=== PATIENT | female | born 1985 | race Caucasian/White ===

== ENCOUNTER 2023-06-27 06:06 | Inpatient (IN) ==
[2023-06-27] MEDS ORDERED: LIDOCAINE 1% LOCAL 20 ML VIAL INFIL PRN (07:29)
[2023-06-27] MEDS ORDERED: OXYTOCIN 30 UNITS/500 ML BAG IV PRN ×3 (07:29→22:36)
--- NOTE | 2023-06-27 07:39 | History & Physical Report ---
Date of Service June 27, 2023 Assessment & Plan (1) SROM (spontaneous rupture of membranes): Plan: 37 yo at 38 5/7 wga presents w/ srom VSS Fetus cat 1 SROM - ROM confirmed. Offered to walk for a few hours vs starting pit, pt would like to walk. Aware if does not change, may rec pit GBS neg epidural prn History of Present Illness Chief Complaint: LOF Primary Care Provider: Jaspreet Wan, DO 37 yo at 38 5/7 wga presents w/ c/o LOF. +FM; denies VB. Has some period like cramps, felt a little more while walking around at home. 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[employer] Hx: G1 2019 G2 current denies hx stis Allergies Allergy/AdvReac Type Severity Reaction Status Date / Time No Known Allergies Allergy Mild Verified 06/27/23 07:04 Home Medications Medication Instructions Recorded Confirmed Type prenat.vits,mary,vhc-qgsb-[id number] 1 tab PO DAILY 11/22/22 06/27/23 History breast pump #1 ea 05/31/23 06/26/23 Rx ferrous sulfate 325 mg (65 mg 325 mg PO DAILY 06/27/23 06/27/23 History iron) tablet (iron) Patient History Medical History (Updated 06/27/23 @ 07:37 by Venecia Amador MD) Endometriosis History of chicken pox Perforated chronic stomach ulcer approx 16 years ago Surgical History (Updated 06/27/23 @ 07:03 by Dyan Mendoza RN) H/O laparoscopy Secondary to endometriosis. H/O wisdom tooth extraction Status post surgery perforated stomach ulcer Family History Mother Diabetes COPD (chronic obstructive pulmonary disease) Father Diabetes Sister Gestational diabetes Denies family history of Ovarian cancer Prostate cancer Myocardial infarction Breast cancer Colorectal cancer Social History (Updated 06/27/23 @ 07:04 by Dyan Mendoza, RN) Smoking Status: Never smoker Second Hand Exposure: No; Do You Dip or Chew Tobacco: No; Hx Alcohol Use: No Hx Substance Use: No Preferred Language: Hungarian marital status: marital status details: Chinedu Vang (37) [phone] Current Living Situation: Spouse and Family Current Living Situation Comment: lives with spouse, son, dog current occupational status: employed current occupation: [employer] How many Children do You have: 1 Physical Exam Genitourinary: Manual OB Exam: + cervical dilation (1.5), + cervical effacement 50%, + station -2 and + amniotic fluid (+nitrazine, pooling, ferning) OB Exam Monitor Tracing: + external FHT monitor used, + external uterine monitor used (irreg) and + category I (140/mod/+accel/-decel) Results & Data Vital Signs (Past 12 Hours) Vital Signs Temp Pulse BP 06/27/23 06:59 75 120/78 06/27/23 06:40 97.9 F 75 119/75 Laboratory Results OB Labs: Blood Type O Positive 12/13/22 Antibody Screen NEGATIVE 12/13/22 Hemoglobin 12.6 g/dl (12.0-16.0) 04/19/23 Hematocrit 36.1 % (37.0-47.0) L 04/19/23 Mean Corpuscular Volume 91.3 fL (80.0-100.0) 12/13/22 Platelet Count 211 K/uL (130-400) 12/13/22 Rubella IgG Antibody Immune (Immune) 12/13/22 Rapid Plasma Reagin Nonreactive (Nonreactive) 12/13/22 Hepatitis B Surface Antigen. NON-REACTIVE (NON-REACTIVE) 12/13/22 Hepatitis C Antibody (EIA) NON-REACTIVE (NON-REACTIVE) 12/13/22 HIV (1&2) Ag and Ab Confirmation NON-REACTIVE (NON-REACTIVE) 12/13/22 Glucose 1 Hour 50 gm Load 115 mg/dl (70-130) 04/19/23 Maternal Serum Alpha Fetoprotein 26.8 ng/mL 01/22/23 OB Optional Labs: Chlamydia trachomatis RNA Not Detected (NotDetected) 11/27/22 Neisseria gonorrhoeae RNA Not Detected (NotDetected) 11/27/22 Alpha Fetoprotein Triple Screen SEE NOTE 01/22/23 Labs Reviewed: cfdna-low risk--mln Declines carrier screen--mln neg afp - sln GBS neg Coding Level of Care Code None Diagnoses SROM (spontaneous rupture of membranes)
[2023-06-27 08:07] LABS: Hematocrit (blood only) 38.8 % (37.0-47.0); Hemoglobin 13.6 g/dl (12.0-16.0); Mean Corpuscular Hemoglobin 33.3 pg (25.0-34.0); Mean Corpuscular Hgb Conc 35.1 g/dL (32.0-36.0); Mean Corpuscular Volume 94.9 fL (80.0-100.0); Mean Platelet Volume 11.2 fL (9.4-12.4); Platelet Count 162 K/uL (130-400); RDW Coefficient of Variation 12.6 % (11.5-14.5); RDW Standard Deviation 43.9 fL (36.4-46.3); Red Blood Count 4.09 M/uL (4.20-5.40); White Blood Count 9.91 K/ul (4.8-10.8)
[2023-06-27] MEDS: LACTATED RINGER'S 1,000 ML IV PRN ×2 (16:12→19:13)
[2023-06-27] MEDS ORDERED: ePHEDrine sulfate 50 MG/ML AMP ONE (18:25)
[2023-06-27] MEDS ORDERED: fentaNYL citrate PF 100 MCG/2 ML VIAL ONE (18:25)
[2023-06-27] MEDS ORDERED: fentaNYL 2MCG/ML ROPIVACAINE 1.25MG/ML 100 ML BAG EPI ONE (18:26)
[2023-06-27] MEDS ORDERED: BUPIVACAINE 0.25% PF 30 ML VIAL ONE (18:26)
[2023-06-27] MEDS ORDERED: SODIUM CHLORIDE 0.9% PF INJ 10 ML VIAL ONE (18:26)
[2023-06-27] MEDS ORDERED: LIDOCAINE 2%/EPINEPHRINE 1:200,000 20 ML PF ONE ×2 (18:26→21:47)
--- NOTE | 2023-06-27 18:36 | Anesthesiology Consultation ---
Date of Service June 27, 2023 Assessment & Plan (1) Encounter for pre-operative examination: Chart Review Chart Review: Acceptable Risk for Labor Epidural History Height/Weight Height: 5 ft 7 in Weight: 78.925 kg Allergies Allergy/AdvReac Type Severity Reaction Status Date / Time No Known Allergies Allergy Mild Verified 06/27/23 07:04 Medications Home Medications Medication Instructions Recorded Confirmed Last Taken prenat.vits,mary,hdt-nzqi-nlegv 1 tab PO DAILY 11/22/22 06/27/23 06/26/23 breast pump #1 ea 05/31/23 06/26/23 Unknown ferrous sulfate 325 mg (65 mg 325 mg PO DAILY 06/27/23 06/27/23 06/26/23 iron) tablet (iron) Active Medications Generic Name Dose Route Start Last Admin Trade Name Freq PRN Reason Stop Dose Admin Lactated Ringer's 1,000 mls @ 125 mls/hr 06/27/23 07:29 06/27/23 18:23 Lr IV 06/29/23 07:28 999 mls/hr .Q8H PRN Infusion L&D Protocol Protocol Oxytocin 30 units in 500 mls @ 6 mls/hr 06/27/23 15:32 06/27/23 17:45 Pitocin IV 06/29/23 15:31 0.36 units/hr .Q24H PRN 6 mls/hr Labor Induction/Augmentation Titration Protocol 0.36 UNITS/HR Past Medical History Medical History Endometriosis History of chicken pox Perforated chronic stomach ulcer approx 16 years ago Past Family History Family History Mother Diabetes COPD (chronic obstructive pulmonary disease) Father Diabetes Sister Gestational diabetes Denies family history of Ovarian cancer Prostate cancer Myocardial infarction Breast cancer Colorectal cancer Past Surgical History Surgical History H/O laparoscopy Secondary to endometriosis. H/O wisdom tooth extraction Status post surgery perforated stomach ulcer Social History Smoking Status: Never smoker Do You Dip or Chew Tobacco: No Hx Alcohol Use: No Hx Substance Use: No substance use type: does not use Physical Exam Vital Signs Last Vital Signs Temp 36.6 C 06/27/23 17:00 Pulse 87 06/27/23 18:33 Resp 18 06/27/23 17:00 BP 146/91 H 06/27/23 18:22 Pulse Ox 100 06/27/23 18:33 Testing Laboratory Results 06/27/23 07:48
[2023-06-27] MEDS ORDERED: fentaNYL citrate PF 100 MCG/2 ML VIAL EPI STA (19:11)
[2023-06-27] MEDS ORDERED: ROPIVACAINE 0.5% PF 5 MG/ML 20 ML VIAL EPI PRN (19:11)
[2023-06-27] MEDS ORDERED: NALOXONE HCL 1 MG in SODIUM CHLORIDE 0.9% 1,000 ML IV PRN (19:11)
[2023-06-27] MEDS ORDERED: ONDANSETRON INJ 2 MG/ML 2 ML VIAL IV PRN (19:11)
[2023-06-27] MEDS ORDERED: LIDOCAINE 2%/EPINEPHRINE 1:200,000 20 ML PF EPI STA (19:11)
[2023-06-27] MEDS ORDERED: NALOXONE HCL 0.4 MG/1 ML VIAL/CARP IV PRN (19:11)
[2023-06-27] MEDS ORDERED: ePHEDrine sulfate 50 MG/ML AMP IV PRN (19:11)
[2023-06-27] MEDS ORDERED: BUPIVACAINE 0.25% PF 30 ML VIAL EPI STA (19:11)
[2023-06-27] MEDS ORDERED: SODIUM CHLORIDE 0.9% PF INJ 10 ML VIAL EPI PRN (19:11)
[2023-06-27] MEDS ORDERED: LIDOCAINE 2% MPF LOCAL 5 ML VIAL EPI PRN (19:11)
[2023-06-27] MEDS ORDERED: fentaNYL 2MCG/ML ROPIVACAINE 1.25MG/ML 100 ML BAG EPI PRN (19:11)
[2023-06-27] MEDS ORDERED: SODIUM CHLORIDE 0.9% PF INJ 10 ML VIAL EPI STA (19:11)
[2023-06-27] MEDS ORDERED: fentaNYL citrate PF 100 MCG/2 ML VIAL EPI PRN (19:11)
[2023-06-27] MEDS ORDERED: BUPIVACAINE 0.25% PF 30 ML VIAL EPI PRN (19:11)
[2023-06-27] MEDS ORDERED: NURSING L&D Epidural Breakthrough Pain Update ONE (21:19)
[2023-06-27] MEDS ORDERED: ROPIVACAINE 0.5% 5 MG/ML 30 ML VIAL ONE (21:47)
--- NOTE | 2023-06-27 21:52 | Anesthesia Procedure Note ---
Date of Service June 27, 2023 Anesthesia Epidural Re-Dose Vital Signs Temp Pulse Resp BP Pulse Ox 36.8 C 112 H 18 133/81 98 06/27/23 21:00 06/27/23 21:48 06/27/23 19:06 06/27/23 21:39 06/27/23 21:48 Notes Pain Intensity: 7 Dilatation (cm): 8.0 Effacement (%): 100 Called by nursing to evaluate epidural as the patient is having increased pain. The epidural was re-dosed with the following medications (all medications via epidural route) after negative aspiration of the epidural catheter for CSF/HEME 1.2% lidocaine and 0.2% ropivacaine 7 ml After Epidural Re-Dose Mental Status: alert / awake / arousable Pain: improving with treatment and see Notes below Airway Patency, RR, SpO2: stable & adequate BP & HR: stable & adequate Additional Notes: with cx still pretty painful but seems to get more of a break between - checked her and she is complete and will start pushin now.
[2023-06-27] MEDS ORDERED: bisacodyL 10 MG SUPP PR PRN (22:36)
[2023-06-27] MEDS ORDERED: DIPHTHERIA/TETANUS/PERTUSSIS Vaccine (Tdap, Age 7+yrs) 0.5mL SYR/VL IM ONE (22:36)
[2023-06-27] MEDS ORDERED: HYDROCORTISONE ACETATE 25 MG SUPP PR PRN (22:36)
[2023-06-27] MEDS ORDERED: BENZOCAINE 20% SPRY 85 APPLN/85 GM CAN EXT PRN (22:36)
[2023-06-27] MEDS ORDERED: ACETAMINOPHEN 325 MG TAB PO PRN (22:36)
--- NOTE | 2023-06-27 22:41 | Delivery Summary ---
Vaginal Delivery Summary Date of Service June 27, 2023 Vaginal Delivery Summary and 1st Degree LAC Patient progressed to 10 cm dilated percent effaced +2 station pushed over intact perineum with epidural anesthesia and delivered a viable male with weight and Apgars pending. Patient pushed with 25 minutes to achieve delivery. Had the delivered in KOBI position rest due to right transverse. A loose nuchal cord was noted which was easily reduced. Body and shoulders quickly followed. There is noted to be a body cord after delivery. was noted to be vigorous soon after delivery and a 1 minute delayed cord clamping was initiated. Cord was then double clamped and cut. Attention was turned to delivery the placenta which delivered intact with three-vessel cord with gentle cord. Inspection of inspection of the perineum vagina and cervix there is noted to be a first-degree right lateral vaginal laceration which was repaired with 3-0 Vicryl in a continuous stitch. Needle sponge and instrument counts are correct at the completion of the case. Both mother and stable in the immediate postdelivery. [facility] Vaginal Delivery Charge Delivery Type Details: and 1st Degree LAC
[2023-06-28] MEDS: IBUPROFEN 600 MG TAB PO PRN ×3 (01:26→15:08)
--- NOTE | 2023-06-28 07:02 | Anesthesia Procedure Note ---
Date of Service June 28, 2023 Anesthesia Post Epidural Note Vital Signs Vital Signs: Temp Pulse Resp BP Pulse Ox O2 Del Method 97.9 F 76 18 124/70 97 Room Air 06/28/23 04:20 06/28/23 04:20 06/28/23 04:20 06/28/23 04:20 06/28/23 01:20 06/28/23 01:20 Pain Intensity Abdomen: Pain Intensity: 2 Notes Mental Status: alert / awake / arousable and participated in evaluation Nausea / Vomiting: adequately controlled Pain: adequately controlled Airway Patency, RR, SpO2: stable & adequate BP & HR: stable & adequate Hydration State: stable & adequate Neuraxial Anesthesia: was administered and sensory block is resolving Anesthetic Complications: no major complications apparent and Pt Satisfied with anesthetic care Epidural: Removed without complications and With tip intact
--- NOTE | 2023-06-28 08:10 | Medical Student Progress Note ---
Date of Service June 28, 2023 Assessment & Plan (1) Normal vaginal delivery: Plan Mrs. Jenkins is a 37 yo , PPD 1 status post vaginal delivery of a boy. She feels well. Vaginal Delivery, uncomplicated Eating well, passing gas, ambulating well. Pain is 1/10 predominantly with breast feeding. Vital signs reviewed and WNL. Hgb reveiwed: 13.6 -Routine care -- ambulation, normal diet. -Continue to encourage ambulation, monitor and control pain with Motrin PRN -Resume regular diet -Monitor lochia -Breast feeding encouraged. -After discharge will have 6 week follow up with [facility]. Admission and Anticipated Discharge Date Admission Date: June 27, 2023 Subjective PPD 1 uncomplicated vaginal delivery. Ambulating normally, passing gas, breast feeding. . Pain: 1/10, predominately while breast feeding. Lochia: blood with just a few clots. Tolerating normal diet. ROS: No ZHANG, chest pain, SOB, n/v/d, or lower leg edema. Physical Exam Constitutional: Alert and oriented x3 in hospital bed Eyes: Pupils were equal, normal shape and size. Anicteric sclerae. ENMT: No hearing impairment. Neck: Respiratory: CTA, no increased work of breathing, no cough Gastrointestinal (Abdomen): Nondistended, nontender, uterus firm Musculoskeletal: Moves all extremities independently. Skin: Warm dry, no apparent rashes. Psychiatric: Appropriate mood and affect. Results & Data Vital Signs (Past 12 Hours) Vital Signs Temp Pulse Pulse Resp BP BP Pulse Ox 06/28/23 04:20 36.6 C 76 18 124/70 06/28/23 01:20 36.6 C 78 18 131/78 97 06/28/23 00:29 90 18 134/75 06/28/23 00:14 84 116/64 06/27/23 23:59 96 H 18 122/69 06/27/23 23:44 93 H 123/75 06/27/23 23:29 86 18 120/61 06/27/23 23:14 83 18 126/66 06/27/23 22:59 96 H 18 119/63 06/27/23 22:44 110 H 18 129/82 06/27/23 22:33 91 H 97 06/27/23 22:29 99 H 18 121/69 06/27/23 22:28 98 H 96 06/27/23 22:23 89 73 L 06/27/23 22:18 91 H 96 06/27/23 22:14 87 107/58 L 06/27/23 22:13 111 H 90 06/27/23 22:12 104 H 87 L 06/27/23 22:08 99 H 93 06/27/23 22:03 103 H 97 06/27/23 22:02 111 H 84 L 06/27/23 21:58 106 H 96 06/27/23 21:56 107 H 142/65 H 06/27/23 21:54 112 H 135/69 06/27/23 21:53 100 H 98 06/27/23 21:52 113 H 143/67 H 06/27/23 21:51 108 H 206/88 H 06/27/23 21:48 112 H 98 06/27/23 21:43 101 H 98 06/27/23 21:38 112 H 98 06/27/23 21:39 94 H 133/81 06/27/23 21:33 109 H 97 06/27/23 21:28 113 H 97 06/27/23 21:23 100 H 98 06/27/23 21:18 100 H 98 06/27/23 21:13 99 H 100 06/27/23 21:08 95 H 100 06/27/23 21:09 88 105/63 06/27/23 21:00 36.8 C 06/27/23 21:03 95 H 100 06/27/23 20:58 86 100 06/27/23 20:53 91 H 99 06/27/23 20:48 88 99 06/27/23 20:43 83 98 06/27/23 20:38 77 99 06/27/23 20:39 75 105/63 06/27/23 20:33 79 99 06/27/23 20:28 90 100 06/27/23 20:23 76 100 06/27/23 20:24 73 109/69 06/27/23 20:18 80 100 06/27/23 20:13 76 100 06/27/23 20:08 88 99 06/27/23 20:09 83 115/73 06/27/23 20:03 89 100 O2 Del Method 06/28/23 04:20 06/28/23 01:20 Room Air 06/28/23 00:29 06/28/23 00:14 06/27/23 23:59 06/27/23 23:44 06/27/23 23:29 06/27/23 23:14 06/27/23 22:59 06/27/23 22:44 06/27/23 22:33 06/27/23 22:29 06/27/23 22:28 06/27/23 22:23 06/27/23 22:18 06/27/23 22:14 06/27/23 22:13 06/27/23 22:12 06/27/23 22:08 06/27/23 22:03 06/27/23 22:02 06/27/23 21:58 06/27/23 21:56 06/27/23 21:54 06/27/23 21:53 06/27/23 21:52 06/27/23 21:51 06/27/23 21:48 06/27/23 21:43 06/27/23 21:38 06/27/23 21:39 06/27/23 21:33 06/27/23 21:28 06/27/23 21:23 06/27/23 21:18 06/27/23 21:13 06/27/23 21:08 06/27/23 21:09 06/27/23 21:00 06/27/23 21:03 06/27/23 20:58 06/27/23 20:53 06/27/23 20:48 06/27/23 20:43 06/27/23 20:38 06/27/23 20:39 06/27/23 20:33 06/27/23 20:28 06/27/23 20:23 06/27/23 20:24 06/27/23 20:18 06/27/23 20:13 06/27/23 20:08 06/27/23 20:09 06/27/23 20:03 Supervising Attestation Patient seen with med student and resident and agree with the above findings and plan. Patient doing well. Vitals within normal limits. Bleeding minimal. Routine care. Plan for discharge tomorrow
[2023-06-28] MEDS: DOCUSATE SODIUM 100 MG CAP PO SCH ×2 (08:27→20:50)
[2023-06-28] MEDS: PRENATAL VITAMIN 1 TAB PO SCH (08:27)
--- NOTE | 2023-06-28 14:24 | Obstetrical Progress Note ---
Date of Service <Dillon Lu MD - Last Filed: 06/29/23 06:53> June 28, 2023 Assessment & Plan <Dillon Lu MD - Last Filed: 06/29/23 06:53> (1) Vaginal delivery: Plan 37 yo , status post of a boy, on 06/27/23, with a 1st degree LAC - Pt doing well clinically. Feels well today. Eating well, voiding well, ambulating well. Pain well controlled with PRN pain meds. - Routine care -- OOB, ambulation, diet progression as tolerated Vital Signs reviewed and WNL (Tmax at 36.8) after delivery, except as noted: P of 96 a few hrs after delivery. Hemoglobin Reviewed. 13.6 (date) ___ (today). Blood Type: O+, GBS-, Rubella Immune. Encourage ambulation, monitor and control pain with Motrin PRN, resume regular diet, monitor lochia. Breast feeding encouraged. After discharge will have 6 week follow-up with Dr. Angulo. Pt counselled on discharge instructions. <Svitlana Marti MD - Last Filed: 06/29/23 07:03> (1) Vaginal delivery: Subjective <Dillon Lu MD - Last Filed: 06/29/23 06:53> Ambulation: ambulating normally Voiding: no voiding problems Passing Gas:: Yes Diet Tolerance:: regular diet Lochia:: Small Feeding Type:: breast feeding (w/ suppl formula) Current Pain Level(1-10): 1 (cramping when ) Constitutional: no fever, no chills or no weakness Respiratory: no cough or no dyspnea Cardiovascular: no chest pain or no palpitations Breast: + breast pain (nipple soreness w/ latching) Gastrointestinal: no nausea, no vomiting, no constipation (has not had BM yet) or no diarrhea/loose stools Musculoskeletal: no myalgia (calf pain or tenderness) Physical Exam <Dillon Lu MD - Last Filed: 06/29/23 06:53> Constitutional WD/WN, vitals as above Respiratory normal respiratory effort, lungs clear to auscultation Cardiovascular RRR, no murmur, no edema Gastrointestinal (Abdomen) normal bowel sounds, soft, nontender, no hepatosplenomegaly Musculoskeletal Extremities: extremities normal to inspection (no calf pain or tenderness) Results & Data <Dillon Lu MD - Last Filed: 06/29/23 06:53> Vital Signs (Past 12 Hours) Vital Signs Temp Pulse Resp BP O2 Del Method 06/28/23 13:05 36.7 C 74 16 115/74 Room Air 06/28/23 07:45 36.3 C L 70 16 121/75 Room Air 06/28/23 04:20 36.6 C 76 18 124/70 <Svitlana Marti MD - Last Filed: 06/29/23 07:03> Co-Signing Physician Notes Resident Physician Supervision Note: I interviewed and examined the patient. Discussed with Dr. Lu and agree with findings and plan as documented in the note. Any exceptions or clarifications are listed here: [ ] Documented By: Svitlana Marti MD, FACOG
[2023-06-28] MEDS ORDERED: bisacodyL 5 MG TABEC PO SCH (20:00)
[2023-06-29] MEDS: PRENATAL VITAMIN 1 TAB PO SCH (10:22)
[2023-06-29] MEDS: IBUPROFEN 600 MG TAB PO PRN (10:22)
[2023-06-29] MEDS: DOCUSATE SODIUM 100 MG CAP PO SCH (10:22)
== END 2023-06-29 13:50 | disposition home or self-care (01) | DRG 807 ==
LOC: OPB 06:06 → 4S1 06:15 → 4E2 06-28 01:09
DX: Z37.0 Single live birth; Z3A.38 38 weeks gestation of pregnancy; O69.81X0 Labor and delivery complicated by cord around neck, without compression, not applicable or unspecified; O09.523 Supervision of elderly multigravida, third trimester; O42.02 Full-term premature rupture of membranes, onset of labor within 24 hours of rupture; O70.0 First degree perineal laceration during delivery; Z79.899 Other long term (current) drug therapy